=== PATIENT | male | born 1925 | race Caucasian/White ===

== ENCOUNTER 2017-02-04 23:47 | Inpatient (IN) | payer OTHER ==
[~2017-02-04] VITALS: Ht 180.3 cm; Wt 98.0 kg
[2017-02-05 00:25] LABS: BASOPHIL COUNT 0.1 K/uL (0-0.1); EOSINOPHIL (%) 2.4 % (0-5); EOSINOPHIL COUNT 0.2 K/uL (0-0.3); HEMATOCRIT 34.4 % (38.0-50.0); IMMATURE GRANULOCYTE (%) 0.3 % (0.0-0.7); INSTRUMENT ABS NEUTROPHIL CT 4.9 K/uL; LYMPHOCYTE COUNT 1.6 K/uL (1.0-2.8); MCH 32.7 PG (29.0-34.0); MCHC 32.6 G/DL (30.0-36.0); MCV 100.3 FL (86-99); MEAN PLAT.VOLUME 9.6 uM^3 (9.0-12.4); MONOCYTE (%) 10.9 % (3-12); MONOCYTE COUNT 0.8 K/uL (0-0.8); NEUTROPHIL (%) 64.9 % (45-76); NEUTROPHIL COUNT 4.9 K/uL (1.8-6.4); PLATELET COUNT 163 K/uL (156-360); RED BLOOD COUNT 3.43 M/uL (4.00-5.50); WHITE BLOOD COUNT 7.6 K/uL (4.1-10.2)
[2017-02-05 00:30] LABS: INTER. NORMALIZED RATIO 1.1; PROTHROMBIN TIME 11.7 SEC (10.2-12.9)
[2017-02-05 00:32] LABS: PTT 29.5 SEC (25-37)
[2017-02-05 00:42] LABS: ADD MIUA? YES; BILIRUBIN NEGATIVE; BLOOD SMALL; COLOR YELLOW ((YELLOW)); GLUCOSE (STRIP) NEGATIVE; KETONES NEGATIVE; LEUKOCYTES NEGATIVE; NITRITE NEGATIVE; PROTEIN (STRIP) 30; SPECIFIC GRAVITY 1.024 (1.000-1.030)
[2017-02-05 00:46] LABS: TROP-I INTERPRETATION NEGATIVE; TROPONIN-I < 0.01 ng/mL (0.0-0.30)
[2017-02-05 00:55] LABS: BACTERIA NONE SEEN /HPF; EPITHELIAL CELLS RARE /HPF; MUCUS TRACE /LPF; RED BLOOD CELLS 0-5 /HPF (0-5); UCUL ADDED? NO; WHITE BLOOD CELLS 0-5 /HPF (0-5)
[2017-02-05 00:57] LABS: CHLORIDE 108 mEq/L (99-109); SODIUM 143 mEq/L (136-147)
[2017-02-05 00:58] LABS: AMYLASE 55 IU/L (1-118)
[2017-02-05 01:00] LABS: GLUCOSE 129 mg/dL (70-99)
[2017-02-05 01:01] LABS: ANION GAP 12 MEQ/L (2-14); TOTAL BILIRUBIN 0.9 mg/dL (0.0-1.0)
[2017-02-05 01:02] LABS: SERUM ETHYL ALCOHOL < 10 mg/dL
[2017-02-05 01:03] LABS: ALKALINE PHOSPHATASE 67 IU/L (3-129); GFR ESTIMATE (CALCULATED) 55 mL/min/
[2017-02-05 01:04] LABS: UREA NITROGEN (BUN) 31 mg/dL (9-23)
[2017-02-05 01:07] LABS: LIPASE 26 U/L (1.0-51.0)
[2017-02-05 01:27] LABS: AMPHETAMINE NEGATIVE (500 ng/mL); BARBITURATES NEGATIVE (200 ng/mL); BENZODIAZEPINES NEGATIVE (150 ng/mL); COCAINE NEGATIVE (150 ng/mL); METHADONE NEGATIVE (200 ng/mL); METHAMPHETAMINE NEGATIVE (500 ng/mL); OPIATES (MORPHINE) NEGATIVE (100 ng/mL); PHENCYCLIDINE NEGATIVE (25 ng/mL); THC CANNABINOIDS NEGATIVE (50 ng/mL); TRICYCLIC ANTIDEPRESSANTS NEGATIVE (300 ng/mL)
[2017-02-05 01:28] LABS: INTERNAL CONTROLS VALID? YES; OXYCODONE NEGATIVE (100 ng/mL); PROPOXYPHENE NEGATIVE (300 ng/mL)
[2017-02-05] MEDS ORDERED: TYLENOL EXTRA500 MG PO (01:50)
[2017-02-05] MEDS ORDERED: ARTIFICIAL TEAR15 M1 BOTH EYES (01:50)
[2017-02-05] MEDS ORDERED: AMLODIPINE BESYL5 MG PO (01:50)
[2017-02-05] MEDS ORDERED: CLOPIDOGREL75 MG PO (01:51)
[2017-02-05] MEDS ORDERED: K-DUR10 MEQ PO (01:51)
[2017-02-05] MEDS ORDERED: CAPSAICIN57 GM TP (01:51)
[2017-02-05] MEDS ORDERED: ATENOLOL50 MG PO (01:51)
[2017-02-05] MEDS ORDERED: PRAVACHOL80 MG PO (01:51)
[2017-02-05] MEDS ORDERED: LASIX20 MG PO (01:51)
[2017-02-05] MEDS ORDERED: CYANOCOBALAM1000 MCG PO (01:51)
[2017-02-05] MEDS ORDERED: VITAMIN D31000 UNIT PO (01:52)
[2017-02-05 02:44] LABS: HDL CHOLESTEROL 34 MG/DL (Desirable>=40); LDL CHOLESTEROL 87 mg/dL (Desirable<100); NON-HDL CHOLESTEROL 113 mg/dL (Desirable<160); SAMPLE HEMOLYSIS CHECK 0; SAMPLE ICTERIC CHECK 0; SAMPLE LIPEMIA CHECK 0; TOTAL CHOLESTEROL 147 mg/dL (Desirable<200); TRIGLYCERIDES 129 MG/DL (Normal: <150)
[2017-02-05 06:24] VITALS: BP 150/89
[2017-02-05 08:57] LABS: Estimated Average Glucose 128 mg/dL (70-123); HEMOGLOBIN A1c (GLYCOHEMOGLOB) 6.1 % HGB (Below 5.7)
[2017-02-05 23:04] VITALS: BP 00/00
[2017-02-06] MEDS ORDERED: MORPHINE CON20 MG/M1 PO (15:38)
[2017-02-06] MEDS ORDERED: ATIVAN INTE2 MG/1 ML PO (15:40)
== END 2017-02-06 17:32 | disposition hospice, home (50) | DRG 64 ==
LOC: EME → EDBD 23:47 → EME 23:47 → 5EAST 02-05 03:14 → EDOF 02-05 03:14 → ENRESERV 02-05 03:15 → 5EAST 02-05 04:31 → ENPENDDIS 02-06 → 5EAST 02-06 17:32
PROVIDERS: Emergency Medicine
DX: I63.511 Cerebral infarction due to unspecified occlusion or stenosis of right middle cerebral artery (principal); G93.41 Metabolic encephalopathy; I48.91 Unspecified atrial fibrillation; Z51.5 Encounter for palliative care; I25.10 Atherosclerotic heart disease of native coronary artery without angina pectoris; I10 Essential (primary) hypertension; E78.5 Hyperlipidemia, unspecified; D64.9 Anemia, unspecified; M19.90 Unspecified osteoarthritis, unspecified site; Z66 Do not resuscitate; I25.2 Old myocardial infarction; Z95.1 Presence of aortocoronary bypass graft; Z95.5 Presence of coronary angioplasty implant and graft
CPT/HCPCS: 70450; 70496; 70498; 71010; 80053; 80061; 81003; 82150; 83036; 83690; 84484; 85025; 85610; 85730; 86850; 86900; 86901; 93005; 99281; 99285; G0480; J2060; J2270